=== PATIENT | male | born 1965 | race American Indian/Alaskan Native ===

== ENCOUNTER 2022-11-28 16:02 | Emergency (ER) | payer MEDICAID, OTHER | END 2022-11-28 19:01 | disposition home or self-care (01) | LOC: JP.ED 16:02 | DX: G81.91 Hemiplegia, unspecified affecting right dominant side (principal); I48.91 Unspecified atrial fibrillation; Z79.82 Long term (current) use of aspirin; Z79.01 Long term (current) use of anticoagulants; Z79.899 Other long term (current) drug therapy; Z86.73 Personal history of transient ischemic attack (TIA), and cerebral infarction without residual deficits | CPT/HCPCS: 82947; 99283; 99284 ==

== ENCOUNTER 2023-06-23 13:40 | Emergency (ER) | payer MEDICAID ==
[2023-06-23] MEDS ORDERED: Morphine 30 MG Tab.ER PO SCH (15:00)
== END 2023-06-23 15:45 | disposition home or self-care (01) ==
LOC: JP.ED 13:40
DX: C34.90 Malignant neoplasm of unspecified part of unspecified bronchus or lung (principal); E78.00 Pure hypercholesterolemia, unspecified; I10 Essential (primary) hypertension; Z86.73 Personal history of transient ischemic attack (TIA), and cerebral infarction without residual deficits; Z79.899 Other long term (current) drug therapy; Z79.01 Long term (current) use of anticoagulants; Z79.82 Long term (current) use of aspirin
CPT/HCPCS: 99283; 99285; A9270

== ENCOUNTER 2023-08-27 08:48 | Emergency (ER) | payer MEDICAID ==
[2023-08-27] MEDS ORDERED: Naloxone 0.4 MG/ML SDV IVPUSH PRN (09:34)
[2023-08-27] MEDS: HYDROmorphone 0.5 MG/0.5 ML Syringe IM ONE ×2 (09:41→17:23)
== END 2023-08-27 18:19 | disposition home or self-care (01) ==
LOC: JP.ED 08:48
DX: C34.90 Malignant neoplasm of unspecified part of unspecified bronchus or lung (principal); E46 Unspecified protein-calorie malnutrition; J44.9 Chronic obstructive pulmonary disease, unspecified; I10 Essential (primary) hypertension; Z79.82 Long term (current) use of aspirin
CPT/HCPCS: 96372; 99284; J1170